=== PATIENT | female | born 1995 | race African-American/Black ===

== ENCOUNTER 2018-07-13 08:05 | Emergency (ER) | payer OTHER ==
[2018-07-13 08:28] VITALS: BP 120/82; PULSE 76; TEMP 98.8; BMI 28.3
--- NOTE | 2018-07-13 09:01 | PDOC ---
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 Patient denies impacted eyes. Washed her face with hand soap and water, and was advised to come to emergency department for evaluation. Denies any visual changes or stinging, denies any impact to nose or mouth. Timing/Duration: unsure, 1-3 hours Severity: mild Associated Symptoms: reports: denies symptoms Past History - Travel Traveled outside of the country in the last 30 days: No Close contact w/someone who was outside of country & ill: No - Past Medical History Allergies/Adverse Reactions: Allergies Allergy/AdvReac Type Severity Reaction Status Date / Time apple Allergy Verified 07/13/18 08:24 Home Medications: Ambulatory Orders NK [No Known Home Medication] 07/13/18 COPD: No - Immunization History Immunization Up to Date: Yes - Suicide/Smoking/Psychosocial Hx Smoking History: Never smoked Hx Alcohol Use: No Drug/Substance Use Hx: No Review of Systems - Review of Systems Able to Perform ROS?: Yes Is the patient limited Indonesian proficient: Yes Constitutional: Yes: See HPI. No: Symptoms Reported, Malaise HEENTM: Yes: See HPI. No: Symptoms Reported Respiratory: No: Symptoms reported Musculoskeletal: No: Symptoms Reported Integumentary: Yes: Symptoms Reported All Other Systems: Reviewed and Negative *Physical Exam - Vital Signs Last Vital Signs Temp Pulse Resp BP Pulse Ox 98.8 F 76 17 120/82 98 07/13/18 08:25 07/13/18 08:25 07/13/18 08:25 07/13/18 08:25 07/13/18 08:25 - Physical Exam General Appearance: Yes: Nourished, Appropriately Dressed, Apparent Distress HEENT: positive: ALBERTA, Normal ENT Inspection, TMs Normal, Pharynx Normal Neck: positive: Supple. 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
== END 2018-07-13 09:08 | disposition home or self-care (01) ==
LOC: JERFT 08:05
DX: Z77.21 Contact with and (suspected) exposure to potentially hazardous body fluids (principal); X58.XXXA Exposure to other specified factors, initial encounter; Y93.F9 Activity, other caregiving; Y92.238 Other place in hospital as the place of occurrence of the external cause; Y99.0 Civilian activity done for income or pay
CPT/HCPCS: 99281-25

== ENCOUNTER 2018-09-03 08:06 | Emergency (ER) | payer OTHER ==
[2018-09-03 08:11] VITALS: BP 118/87; PULSE 80; TEMP 98.7; BMI 22.3
[2018-09-03] MEDS ORDERED: IBUPROFEN 400 MG TABLET (FP) PO ONE ×2 (08:29→09:09)
--- NOTE | 2018-09-03 08:36 | PDOC ---
History of Present Illness - General Chief Complaint: Back Pain Stated Complaint: LOWER BACK PAIN Time Seen by Provider: 09/03/18 08:20 History Source: Patient Exam Limitations: No Limitations (lower back pain R >L X 2 days) - History of Present Illness Pain Location: reports: back Method of Injury: No: fall Associated Symptoms (Fall): denies symptoms Past History - Travel Traveled outside of the country in the last 30 days: No Close contact w/someone who was outside of country & ill: No - Past Medical History Allergies/Adverse Reactions: Allergies Allergy/AdvReac Type Severity Reaction Status Date / Time apple Allergy Verified 09/03/18 08:11 Home Medications: Ambulatory Orders Ciprofloxacin [Cipro -] 250 mg PO BID #6 tablet 09/03/18 Cyclobenzaprine HCl 5 mg PO BID 10 Days #20 tablet 09/03/18 Ibuprofen 600 mg PO ACDIN 7 Days #20 tablet 09/03/18 COPD: No - Immunization History Immunization Up to Date: Yes - Suicide/Smoking/Psychosocial Hx Smoking History: Never smoked Have you smoked in the past 12 months: No Information on smoking cessation initiated: No Hx Alcohol Use: No Drug/Substance Use Hx: No Review of Systems - Review of Systems Is the patient limited Faroese proficient: No Constitutional: No: Chills, Fever ABD/GI: No: Abdominal Distended, Abd. Pain w/ defecation : Yes: Frequency, Urgency. No: Burning, Dysuria, Hematuria Musculoskeletal: Yes: Back Pain. No: Gout, Joint Pain, Joint Swelling, Muscle Pain, Muscle Weakness, Neck Pain, Joint Stiffness Neurological: No: Numbness, Tingling, Tremors, Weakness, Unsteady Gait, Ataxia *Physical Exam - Vital Signs Last Vital Signs Temp Pulse Resp BP Pulse Ox 98.7 F 80 18 118/87 100 09/03/18 08:08 09/03/18 08:08 09/03/18 08:08 09/03/18 08:08 09/03/18 08:08 - Physical Exam General Appearance: Yes: Nourished Respiratory/Chest: positive: Lungs Clear, Normal Breath Sounds Cardiovascular: positive: Regular Rhythm, Regular Rate, S1, S2 Gastrointestinal/Abdominal: positive: Normal Bowel Sounds, Soft Musculoskeletal: positive: Muscle Spasm (+ paraspinal tenderness in lumbar sacral region R>L), Other Neurologic: 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: temp recruiter II-XII 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, Fully Oriented, Alert, Normal Mood/ Affect, Normal Response, Motor Strength 07/19 Medical Decision Making - Medical Decision Making 09/03/18 08:35 23y/o F with lower back pain after 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, also admits to urinary frequency X 1wk, no pelvic pain, f/c denies fall, b/b incontinence or saddle anesthesia Pt has not taken anything for pain exam with muscle tenderness UA with leuks and large blood will tx for UTI given sx also suspect muscle strain from heavy lifting pt advised to maintain proper body mechanics when doing heavy lifting 09/03/18 14:01 *DC/Admit/Observation/Transfer Diagnosis at time of Disposition: Micturition frequency Back pain Qualifiers: Back pain location: low back pain Chronicity: acute Back pain laterality: right Sciatica presence: without sciatica Qualified Code(s): M54.5 - Low back pain - Discharge Dispostion Disposition: HOME Condition at time of disposition: Stable Decision to Admit order: No - Prescriptions Prescriptions: Ciprofloxacin [Cipro -] 250 mg PO BID #6 tablet Cyclobenzaprine HCl 5 mg PO BID 10 Days #20 tablet Ibuprofen 600 mg PO ACDIN 7 Days #20 tablet - Referrals - Patient Instructions Printed Discharge Instructions: DI for Back Spasm Additional Instructions: Please take antibiotics as prescribed increase hydration Followup your primary care doctor Return to the ER if worsening symptom occur - Post Discharge Activity
[2018-09-03 08:49] LABS: HCG,QUALITATIVE URINE Negative
[2018-09-03 08:56] LABS: EPI CELLS 12.1 /HPF (0-5/HPF); HYALINE CASTS 60 /lpf (0-8); PH,URINE 7.5 (5.0-8.0); URINE APPEARANCE CLOUDY; URINE BACTERIA 1474.6 /hpf (NEGATIVE); URINE BILIRUBIN NEGATIVE (NEGATIVE); URINE COLOR YELLOW; URINE GLUCOSE (UA) NEGATIVE (NEGATIVE); URINE KETONE NEGATIVE (NEGATIVE); URINE LEUK ESTERASE 2+ (NEGATIVE); URINE NITRITE NEGATIVE (NEGATIVE); URINE PROTEIN 1+ (NEGATIVE); URINE RBC 97 /hpf (0-4); URINE WBC 121 /hpf (0-5)
== END 2018-09-03 09:44 | disposition home or self-care (01) ==
LOC: JERFT 08:06
DX: N39.0 Urinary tract infection, site not specified (principal); S39.012A Strain of muscle, fascia and tendon of lower back, initial encounter; X50.0XXA Overexertion from strenuous movement or load, initial encounter; Y93.F2 Activity, caregiving, lifting; Y92.238 Other place in hospital as the place of occurrence of the external cause; Y99.0 Civilian activity done for income or pay
CPT/HCPCS: 81003; 84703; 87086; 87186; 99281-25

== ENCOUNTER 2019-03-13 16:00 | Emergency (ER) | payer OTHER ==
[2019-03-13 16:04] VITALS: BP 110/78; PULSE 83; TEMP 98.2; BMI 28.0
--- NOTE | 2019-03-13 16:59 | PDOC ---
Post Exposure HPI - General Chief Complaint: Blood/Body Fluid Exposure SJR Stated Complaint: SPECIMEN IN EYE Time Seen by Provider: 03/13/19 16:06 History Source: Patient Exam Limitations: No Limitations (R eye discomfort after urine splashed in eye 3 :38pm) - History of Present Illness Exposed Location: Right: Eye(s) Assessing Significant Risk PEP: Yes Mucocutaneous - Other Body fluid (urine splashed in R eye) Past History - Travel Traveled outside of the country in the last 30 days: No Close contact w/someone who was outside of country & ill: No - Past Medical History Allergies/Adverse Reactions: Allergies Allergy/AdvReac Type Severity Reaction Status Date / Time apple Allergy Verified 09/03/18 08:11 Home Medications: Ambulatory Orders Ciprofloxacin [Cipro -] 250 mg PO BID #6 tablet 09/03/18 Cyclobenzaprine HCl 5 mg PO BID 10 Days #20 tablet 09/03/18 Ibuprofen 600 mg PO ACDIN 7 Days #20 tablet 09/03/18 Erythromycin 0.5% Eye Ointment [Erythromycin 0.5% Eye Ointment -] 1 applic AD TID 7 Days #1 tube 03/13/19 Erythromycin 0.5% Eye Ointment [Erythromycin 0.5% Eye Ointment -] 1 applic OD TID 7 Days #1 tube 03/13/19 Erythromycin 0.5% Eye Ointment [Erythromycin 0.5% Eye Ointment -] 1 applic OS TID 7 Days #1 tube 03/13/19 COPD: No - Immunization History Immunization Up to Date: Yes - Psycho Social/Smoking Cessation Hx Smoking History: Never smoked Have you smoked in the past 12 months: No Hx Alcohol Use: No Drug/Substance Use Hx: No Review of Systems - Review of Systems Constitutional: No: Chills, Fever HEENTM: Yes: Other (R eye irritation). 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, Fully Oriented, Alert, Normal Response, Motor Strength 5/5 Post Exposure - ED Protocol - Exposure Treatment Washing/Decontamination: Saline Source Patient HIV Status:: Unknown Is PEP indicated?: No Prophylaxis for HIV discussed?: No Prophylaxis given?: No Drug(s) Information Sheets given:: No Baseline bloods drawn prophylaxis:(use *Exposure-Hosp Emp): Yes - Referrals Employee Referred to Employee Health:: Yes (to follow up labs) Medical Decision Making - Medical Decision Making 03/13/19 17:13 24 years old female presents with right eye irritation after urine splash to her eye while attempting to empty patient's [place] at work today. She immediately irrigated When it occurred. Was was advised by [employer] department supervisor to come to the ER for work-up. Her tetanus is up-to-date. 03/13/19 17:14 Discussed with patient the lower risk of HIV or hepatitis transmission in urine. I was irrigated in the emergency room for 20 minutes. Patient appear well, visual acuity is 20/200 bilateral without correction. Patient usually wears her glasses but was not with her at the time of visual acuity. Erythromycin ointment sent to pharmacy for mildly injected eye that was seen. Labs were sent patient will follow-up employee health for results 03/13/19 18:32 Discharge - Discharge Information Problems reviewed: Yes Clinical Impression/Diagnosis: Employee exposure to body fluids Condition: Stable Disposition: HOME - Admission No - Additional Discharge Information Prescriptions: Erythromycin 0.5% Eye Ointment [Erythromycin 0.5% Eye Ointment -] 1 applic AD TID 7 Days #1 tube Erythromycin 0.5% Eye Ointment [Erythromycin 0.5% Eye Ointment -] 1 applic OS TID 7 Days #1 tube Erythromycin 0.5% Eye Ointment [Erythromycin 0.5% Eye Ointment -] 1 applic OD TID 7 Days #1 tube Prescription Drug Monitoring Program (I-STOP) results: I-STOP not reviewed - Follow up/Referral - Patient Discharge Instructions Patient Printed Discharge Instructions: How to Handle Body Fluid Exposure -- Healthcare Worker Additional Instructions: Follow-up employee health in 1 to 2 days. - Post Discharge Activity Work/Back to School Note: Back to Work
[2019-03-13 17:12] LABS: BASO % 1.4 % (0-2.0); HEMATOCRIT 41.3 % (32.4-45.2); LYMPH % 46.9 % (8-40); MCH 32.5 pg (25.7-33.7); MCHC 33.9 g/dl (32.0-36.0); MEAN CELL VOLUME 95.9 fl (80-96); MEAN PLT VOLUME 7.5 fl (7.5-11.1); MONO % 8.4 % (3.8-10.2); NEUT % 39.3 % (42.8-82.8); PLATELET COUNT 340 K/MM3 (134-434); RBC 4.31 M/mm3 (3.60-5.2); RDW 12.7 % (11.6-15.6); WHITE BLOOD COUNT 3.8 K/mm3 (4.0-10.0)
[2019-03-13 17:41] LABS: ALBUMIN 4.6 g/dl (3.4-5.0); BILIRUBIN,TOTAL 0.6 mg/dL (0.2-1); BLOOD UREA NITROGEN 13.8 mg/dL (7-18); CALCIUM 9.4 mg/dL (8.5-10.1); CREATININE 0.7 mg/dL (0.55-1.3); TOT PROT 8.9 g/dl (6.4-8.2)
== END 2019-03-13 17:14 | disposition home or self-care (01) ==
LOC: JER 16:00
DX: Z77.21 Contact with and (suspected) exposure to potentially hazardous body fluids (principal); X58.XXXA Exposure to other specified factors, initial encounter; Y93.F9 Activity, other caregiving; Y92.238 Other place in hospital as the place of occurrence of the external cause; Y99.0 Civilian activity done for income or pay
CPT/HCPCS: 36415; 80053; 85025; 86317; 86704; 86706; 86803; 87340; 87389; 99282-25

== ENCOUNTER 2019-04-11 00:38 | Emergency (ER) | payer OTHER ==
[2019-04-11 00:59] VITALS: BP 112/79; PULSE 88; TEMP 98.3; BMI 27.4
--- NOTE | 2019-04-11 01:25 | PDOC ---
History of Present Illness - General Chief Complaint: Sore Throat Stated Complaint: SORE THROAT Time Seen by Provider: 04/11/19 01:11 History Source: Patient Exam Limitations: No Limitations Past History - Past Medical History Allergies/Adverse Reactions: Allergies Allergy/AdvReac Type Severity Reaction Status Date / Time apple Allergy Verified 04/11/19 00:58 Home Medications: Ambulatory Orders Ciprofloxacin [Cipro -] 250 mg PO BID #6 tablet 09/03/18 Cyclobenzaprine HCl 5 mg PO BID 10 Days #20 tablet 09/03/18 Ibuprofen 600 mg PO ACDIN 7 Days #20 tablet 09/03/18 Erythromycin 0.5% Eye Ointment [Erythromycin 0.5% Eye Ointment -] 1 applic AD TID 7 Days #1 tube 03/13/19 Erythromycin 0.5% Eye Ointment [Erythromycin 0.5% Eye Ointment -] 1 applic OD TID 7 Days #1 tube 03/13/19 Erythromycin 0.5% Eye Ointment [Erythromycin 0.5% Eye Ointment -] 1 applic OS TID 7 Days #1 tube 03/13/19 COPD: No - Immunization History Immunization Up to Date: Yes - Psycho Social/Smoking Cessation Hx Smoking History: Never smoked Have you smoked in the past 12 months: No Information on smoking cessation initiated: No Hx Alcohol Use: No Drug/Substance Use Hx: No *Physical Exam - Vital Signs Last Vital Signs Temp Pulse Resp BP Pulse Ox 98.3 F 88 20 112/79 98 04/11/19 00:58 04/11/19 00:58 04/11/19 00:58 04/11/19 00:58 04/11/19 00:58 - Physical Exam General Appearance: No: Apparent Distress HEENT: positive: Normal Voice. negative: Muffled/Hoarse voice, Pharyngeal Erythema, Tonsillar Exudate, Tonsillar Erythema, Nasal Congestion, Rhinorrhea, Sinus Tenderness Respiratory/Chest: positive: Lungs Clear, Normal Breath Sounds. negative: Respiratory Distress Cardiovascular: positive: Regular Rhythm, Regular Rate, S1, S2. negative: Murmur Neurologic: positive: Alert Medical Decision Making - Medical Decision Making 24 y/o F hx of anemia presents with sore throat today along with mild cough, postnasal drip, mild rhinorrhea. Came to ED in case this was strep throat. Denies fever, vomiting, diarrhea, sob, cp, abd pain. Did not take any meds today PE not concerning for strep Patient reassured stable for dc 04/11/19 01:21 Discharge - Discharge Information Problems reviewed: Yes Clinical Impression/Diagnosis: Sore throat Condition: Stable Disposition: HOME - Admission No - Additional Discharge Information Prescription Drug Monitoring Program (I-STOP) results: I-STOP not reviewed - Follow up/Referral - Patient Discharge Instructions Patient Printed Discharge Instructions: Sore Throat Additional Instructions: Thank you for choosing [facility]. It was a pleasure taking care of you. For postnasal drip, you may use Nedi-Pot and Flonase spray (1-2 puffs in each nostril daily; use for at least 3-4 days) You may use humdifier at night Salt water gargles may also help Follow-up with your doctor in 2 days Return to the Emergency Department if your symptoms worsen or persist or have other concerning symptoms. - Post Discharge Activity
== END 2019-04-11 01:39 | disposition home or self-care (01) ==
LOC: JER 00:38
DX: J02.9 Acute pharyngitis, unspecified (principal); Z91.018 Allergy to other foods
CPT/HCPCS: 99282-25

== ENCOUNTER 2020-11-26 04:35 | Emergency (ER) | payer OTHER ==
[2020-11-26 04:46] VITALS: BP 129/89; PULSE 83; TEMP 98.3; BMI 25.7
[2020-11-26] MEDS ORDERED: PYRIDOXINE HCL (B-6) 50 MG TABLET (FP) PO ONE (05:07)
[2020-11-26 06:33] LABS: URINE APPEARANCE CLEAR; URINE BILIRUBIN 1+ (NEGATIVE); URINE COLOR DK YELLOW; URINE GLUCOSE (UA) NEGATIVE (NEGATIVE); URINE KETONE 4+ (NEGATIVE); URINE LEUK ESTERASE NEGATIVE (NEGATIVE); URINE NITRITE NEGATIVE (NEGATIVE); URINE PROTEIN NEGATIVE (NEGATIVE)
[2020-11-26] MEDS ORDERED: SODIUM CHLORIDE 0.9% 500 ML INFUS.BAG IV ONE (06:38)
== END 2020-11-26 08:40 | disposition home or self-care (01) ==
LOC: JER 04:35
DX: O21.9 Vomiting of pregnancy, unspecified (principal); Z3A.12 12 weeks gestation of pregnancy
CPT/HCPCS: 81003; 87086; 99284-25